=== PATIENT | male | born 1935 | race Caucasian/White ===

== ENCOUNTER 2017-11-06 21:47 | Emergency (ER) | payer MEDICARE, OTHER ==
[2017-11-06 22:44] LABS: Clarity Cloudy (Clear); Leukocyte Small (Negative); Nitrite Positive (Negative); Protein, Urine (Dipstick) 30 mg/dL (Neg-Trace)
[2017-11-06 22:45] LABS: Bilirubin Negative (Negative); Blood, Urine Moderate (Negative); Glucose, Urine (Dipstick) Negative (Negative); Urobilinogen 0.2 mg/dL (0.2-1.0)
[2017-11-06 22:53] LABS: Bacteria/HPF 3+ HPF (None Seen); RBC/HPF 0-3 HPF (0-3); Squamous Epithelial 0-3 HPF (0-3); Transitional Epithelial 0-3 HPF (0-3)
--- NOTE | 2017-11-06 23:41 | RAD ---
PORTABLE CHEST: 11/06/17 An AP portable film at 2207 is presented with no prior films available for comparison. The heart is mildly enlarged but there are no congestive changes or pleural effusions. A prior CABG i s noted. I cannot confirm a focal pneumonia, through it is slightly hazy in the left base. This area is not seen optimally. A followup PA and lateral view may be necessary to get a better view here. IMPRESSION: Mild cardiomegaly. Indeterminate left base. POS: HOME
[2017-11-07] MEDS ORDERED: Piperacillin/Tazobactam 3.375 GM VIAL ONE (00:04)
[2017-11-07 00:41] LABS: #Basophils 0.1 thou/uL (0.0-0.2); #Lymphocytes 5.6 thou/uL (1.20-3.40); #Monocytes 0.7 thou/uL (0.11-0.59); #Neutrophils 12.5 thou/uL (1.40-6.50); %Basophils 0.7 % (0.0-1.0); %Eosinophils 0.2 % (0.0-10.0); %Lymphocytes 29.5 % (21.0-51.0); %Monocytes 3.9 % (0.0-10.0); %Neutrophils 65.7 % (42.0-75.0); Hemoglobin 12.9 g/dL (14.0-18.0); Mean Corpuscular HGB CONC 34.2 g/dL (32.0-36.0); Mean Corpuscular Hemoglobin 31.7 pg (27.0-31.0); Mean Corpuscular Volume 92.7 fL (78.0-98.0); Mean Platelet Volume 7.3 fL (7.4-10.4); Platelet Count 161 thou/uL (130-400); RBC Distribution Width 12.9 % (11.5-14.5); Red Blood Cell (RBC) Count 4.07 mill/uL (4.70-6.10); White Blood Cell (WBC) Count 19.1 thou/uL (4.8-10.8)
[2017-11-07 00:43] LABS: ALT (SGPT) 19 U/L (8-55); Albumin 4.2 g/dL (3.4-4.8); Alkaline Phosphatase 62 U/L (40-150); Anion Gap 14 mmol/L (10-20); BUN (Urea Nitrogen) 17 mg/dL (8.4-25.7); Bilirubin, Total 0.8 mg/dL (0.2-1.2); Calc. Creatinine Clearance 0 mL/min (70-130); Carbon Dioxide 24 mmol/L (23-31); Chloride 103 mmol/L (98-107); Estimated GFR-MDRD 87; Globulin 2.9 g/dL (2.4-3.5); Glucose 139 mg/dL (83-110); Potassium 4.4 mmol/L (3.5-5.1); Protein, Total 7.1 g/dL (5.8-8.1); Sodium 137 mmol/L (136-145)
[2017-11-07 00:44] LABS: CKMB 1.6 ng/mL (0-6.6); Troponin I 0.019 ng/mL (< 0.028)
[2017-11-07 01:03] LABS: AST (SGOT) 17 U/L (5-34); Calcium 9.6 mg/dL (7.8-10.44)
--- NOTE | 2017-11-07 10:05 | RAD ---
PORTABLE CHEST: Date: 11/06/17 Comparison made with a study done earlier the same evening. This exam at 2331 hours was done after in sertion of a right IJ line. The tip of the line is in the vicinity of the distal superior vena cava. Cardiomegaly without overt congestion is again noted. The right lung is relatively clear, though ther e might be a little segmental atelectasis at the base. The left lung base continues to be streaky. I do believe there is a minimal infiltrate here. IMPRESSION: Minimal left basilar infiltrate. POS: HOME
== END 2017-11-07 01:10 | disposition short-term general hospital (02) ==
LOC: BURERS 21:47
DX: A41.9 Sepsis, unspecified organism (principal); N39.0 Urinary tract infection, site not specified; I25.10 Atherosclerotic heart disease of native coronary artery without angina pectoris; I25.2 Old myocardial infarction; E78.5 Hyperlipidemia, unspecified; I10 Essential (primary) hypertension; Z79.82 Long term (current) use of aspirin; Z79.899 Other long term (current) drug therapy
CPT/HCPCS: 36556; 51701; 71045; 80053; 81003; 81015; 82553; 83605; 84484; 85025; 87040; 87077; 87086; 87186; 94760; 96365; J2001; J2543